=== PATIENT | male | born 1955 | race Caucasian/White ===

== ENCOUNTER 2020-01-03 09:41 | Outpatient (CLI) | payer MEDICARE, OTHER, SELFPAY ==
--- NOTE | 2020-01-03 09:49 | CT_ITS ---
WS: [id number] CTA THORACIC TECHNIQUE: Contrast enhanced CTA of the thoracic aorta with coronal and sagittal reformatted images a nd maximum intensity projection (MIP) images. CLINICAL INFORMATION: AORTIC ANEURYSM INTRATHORACIC COMPARISON: June 25, 2019 and October 26, 2018 DLP: 1508.[address] scans at [facility] use at least one of these dose optimization techniques: automat ed exposure control; mA and/or kV adjustment per patient size (includes targeted exams where dose is matched to clinical indication); or iterative reconstruction. FINDINGS: Descending thoracic aortic aneurysm measuring 4.9 cm in maximum dimension. This is unchanged since [place] 2018.Normal caliber aortic arch with narrowing of the descending thoracic aorta with modera te atheromatous disease. Associated peripheral mural thrombus is unchanged in appearance and may be r elated to chronic dissection with thrombosed false lumen. Mild cardiomegaly. Interval improvement in the right pleural effusion which has resolved. Residual pleural thickening ri ght lower lobe with a focal subpleural opacity measuring 1.8 x 1.5 CM. Slight surrounding spiculation . This is indeterminant and malignancy is not excluded. This can be further evaluated with PET/CT, sh ort interval 3 month follow-up chest CT, or CT-guided biopsy. No mediastinal or hilar lymphadenopathy. A few slightly prominent mediastinal lymph nodes likely reac tive. Coronary calcification. Normal gastroesophageal junction. Multiple low-attenuation lesions in t he liver some too small characterize likely hepatic cyst are unchanged. Normal adrenal glands. CT/CT angio chest [id number] IMPRESSION: 1. Stable ascending thoracic aorta aneurysm measuring 4.9 cm unchanged. 2. Stable mild narrowing of the descending thoracic aorta due with peripheral mural thrombus which may be due to prior dissection with occlusion of the false lumen. This is unchanged in appearance. 3. Interval resolution of right pleural effusion and pulmonary infiltrates. 4. Subpleural focal opacity right lower lobe measuring 1.8 x 1.5 cm may repres ent round atelectasis however malignancy is not excluded. This can be further e valuated with PET/CT, short interval 3 month follow-up, or CT-guided biopsy. 5. Mild cardiomegaly. 6. Numerous low-attenuation lesions in the liver some too small to characteriz e likely hepatic cysts and unchanged.
--- NOTE | 2020-01-03 09:50 | XR_ITS ---
WS: [id number] PROCEDURE: XR chest 2V* [id number] CLINICAL INFORMATION: PULMONARY EMBOLI COMPARISON: July 26, 2019 FINDINGS: Heart: Cardiomegaly. Lungs: Chronic emphysematous changes. Focal opacity or infiltrate in the right lower lobe measuring 2 .3 CM. Recommend further evaluation with chest CT. Bones: Normal visualized bony structures. XR/XR chest 2V* [id number] IMPRESSION: 1. Cardiomegaly. 2. Moderate chronic emphysematous changes. 3. Focal opacity or infiltrate in the right lower lobe measuring 2.3 cm. Recom mend further evaluation with chest CT.
[2020-01-03] MEDS: iodixanol 320 mg/mL 100mL Btl IV (10:17)
== END 2020-01-03 09:42 | disposition home or self-care (01) ==
LOC: RADWPI 09:48
PROVIDERS: Family Provider Nurse Practitioner Family; PCP Nurse Practitioner Family; Visit Provider Thoracic Surgery (Cardiothoracic Vascular Surgery)
DX: I71.2 Thoracic aortic aneurysm, without rupture (principal); I51.7 Cardiomegaly; J43.8 Other emphysema
CPT/HCPCS: 71046; 71275

== ENCOUNTER 2020-07-25 07:37 | Outpatient (CLI) | payer MEDICARE, OTHER, SELFPAY ==
--- NOTE | 2020-07-25 08:00 | CT_ITS ---
WS: [id number] CT scan of the chest with IV contrast, additional two-dimensional coronal and sagittal reconstruction was performed. 07/25/2020 Clinical Data: 6 MONTH F/U CT Comparison: CT chest, 01/03/2020. DLP: 1322.[address] scans at [facility] use at least one of these dose optimization techniques: automat ed exposure control; mA and/or kV adjustment per patient size (includes targeted exams where dose is matched to clinical indication); or iterative reconstruction. Findings: The right lower lobe pleural-based nodule still measures 1.5 x 1.8 cm. It is seen best on image 46 of 66. No other nodules are seen. There are no masses or effusions. No pneumonia or pneumothorax is see n. The heart size is slightly enlarged with no pericardial effusion. The ascending aorta is dilated t o 5.0 cm unchanged. The descending thoracic aorta demonstrates no aneurysm but there is a mural throm bus unchanged. The pulmonary artery is unremarkable. There is minimal mediastinal adenopathy but no e nlarged nodes. No axillary adenopathy is present. The upper abdomen shows low density lesions in the liver which are probably cysts and unchanged. The remainder of the upper abdomen is unremarkable. The bones of the thorax show only osteoarthritic ordaz ges of the thoracic vertebral bodies with no metastatic disease. CT/CT chest w con* [id number] Impression: 1. Right lower lobe base nodule unchanged which probably represents fibrosis ra ther than a malignant process. 2. Dilatation of the ascending thoracic aorta with mural thrombus in the descen ding thoracic aorta unchanged.
[2020-07-25 08:25] LABS: Blood Urea Nitrogen 22 mg/dL (8-23); Glomerular Filtration Rate 40.7 mL/min (90-130)
[2020-07-25] MEDS: iodixanol 320 mg/mL 100mL Btl IV (08:47)
== END 2020-07-25 07:38 | disposition home or self-care (01) ==
LOC: RADWPI 07:41
PROVIDERS: PCP Nurse Practitioner Family; Visit Provider Thoracic Surgery (Cardiothoracic Vascular Surgery)
DX: R91.1 Solitary pulmonary nodule (principal)
CPT/HCPCS: 71260; 82565; 84520; Q9967

== ENCOUNTER 2020-08-18 11:08 | Outpatient (CLI) | payer MEDICARE, OTHER, SELFPAY ==
--- NOTE | 2020-08-18 11:48 | ECG_ITS ---
[facility] Test Date: 2020-08-18 Pat Name: Joshua Lazo Department: Room: Gender: Male Superintendent Production: : 1955 Requested By: Dora Villarreal Order Number: [id number] MD: Francisco J Lewis M.D. Measurements Intervals [place] Rate: 70 P: KS: -1 QRS: -37 QRSD: 96 T: 41 QT: 362 QTc: 392 Interpretive Statements ATRIAL FIBRILLATION MARKED LEFT AXIS DEVIATION [QRS AXIS < -30] Compared to ECG 06/25/2019 17:24:35 Left-axis deviation now present Myocardial infarct finding no longer present Electronically Signed On 08-18-2020 18:34:59 WAREHOUSING TECHNICIAN by Francisco J Lewis M.D. [id number]
== END 2020-08-18 11:09 | disposition home or self-care (01) ==
LOC: RT 11:09
PROVIDERS: PCP Nurse Practitioner Family; Visit Provider Nurse Practitioner Family
DX: I48.91 Unspecified atrial fibrillation (principal)
CPT/HCPCS: 93005

== ENCOUNTER 2021-01-26 07:52 | Outpatient (CLI) | payer MEDICARE, OTHER, SELFPAY ==
--- NOTE | 2021-01-26 08:00 | CT_ITS ---
WS: [id number] Exam: CT chest w con* [id number] Date/Time of Exam: 01/26/2021 8:03 AM Reason For Exam: lung nodule DLP: 1072.[address] scans at [facility] use at least one of these dose optimization techniques: automat ed exposure control; mA and/or kV adjustment per patient size (includes targeted exams where dose is matched to clinical indication); or iterative reconstruction. 100 mL of nonionic radiographic contras t administered intravenously. Comparison 07/25/2020. Stable appearing 1.6 cm pleural-based nodule is seen in the right lower lobe. No other discrete nodul es are identified. There are chronic interstitial changes noted in both lungs. The lungs are fully ex panded. There are no infiltrates or pleural effusions. The airway is patent. No hilar or mediastinal lymphadenopathy. Stable appearing dilatation of the descending thoracic aorta with mural thrombus not ed. There is also stable dilatation of the ascending thoracic aorta measuring about 4.8 cm at greates t diameter. Coronary artery calcifications. No pericardial effusion. Normal thyroid tissue. Mild nodu larity the left adrenal gland is unchanged. Several small low attenuation densities in the liver most likely cysts. These are stable. No destructive bone lesions or significant chest wall defects. CT/CT chest w con* [id number] IMPRESSION: 1. Stable 1.6 cm pleural-based nodule in the right lower lobe. 2. No lymphadenopathy in the chest, additional stable appearing nonacute findin gs as detailed above.
[2021-01-26 08:42] LABS: Blood Urea Nitrogen 22 mg/dL (8-23); Glomerular Filtration Rate 35.6 mL/min (90-130)
[2021-01-26] MEDS: iodixanol 320 mg/mL 100mL Btl IV (08:49)
== END 2021-01-26 07:53 | disposition home or self-care (01) ==
PROVIDERS: PCP Nurse Practitioner Family; Visit Provider Thoracic Surgery (Cardiothoracic Vascular Surgery)
DX: R91.1 Solitary pulmonary nodule (principal)
CPT/HCPCS: 71260; 82565; 84520; Q9967

== ENCOUNTER → 2021-11-23 09:05 | Outpatient (BNVA) | payer MEDICARE, OTHER, SELFPAY | PROVIDERS: PCP Nurse Practitioner Family; Visit Provider Specialist | DX: G44.209 Tension-type headache, unspecified, not intractable (principal) | CPT/HCPCS: 99203; 99204 ==

== ENCOUNTER → 2022-01-25 11:42 | Outpatient (BNVA) | payer MEDICARE, OTHER, SELFPAY | PROVIDERS: PCP Nurse Practitioner Family; Visit Provider Specialist | DX: G44.209 Tension-type headache, unspecified, not intractable (principal); F17.290 Nicotine dependence, other tobacco product, uncomplicated | CPT/HCPCS: 99212; 99213 ==

== ENCOUNTER 2022-02-26 13:19 | Outpatient (CLI) | payer MEDICARE, OTHER, SELFPAY ==
--- NOTE | 2022-02-26 13:00 | CT_ITS ---
WS: [id number] Exam: CT chest w con* [id number] Date/Time of Exam: 02/26/2022 1:30 PM Reason For Exam: R91.1 - Solitary pulmonary nodule DLP: 818.[address] scans at [facility] use at least one of these dose optimization techniques: automated e xposure control; mA and/or kV adjustment per patient size (includes targeted exams where dose is matc hed to clinical indication); or iterative reconstruction. Comparison made to prior study 01/26/2021. Stable appearing 1.6 cm pleural-based nodule in the posterior aspect of the right lower lobe. No new nodules have developed. The lungs are fully expanded. Mild plaque atelectasis in the lingula. The air way is patent. The thoracic aorta is normal in caliber. Subcentimeter mediastinal lymph nodes identif ied which are stable. The central pulmonary arteries are clear. Coronary artery calcifications. Stabl e appearing mural thrombus in the thoracic aorta. Normal thyroid tissue. No pleural or pericardial ef fusion. The chest wall is unremarkable. No destructive bone lesions. Stable appearing dilatation of t he ascending aorta measuring about 4.8 cm at greatest diameter. Several small liver cysts which are s table. Mild nodularity the left adrenal gland unchanged. Moderate atrophy of the right kidney noted u nchanged in appearance. CT/CT chest w con* [id number] IMPRESSION: 1. Stable appearing 1.6 cm pleural-based nodule in the posterior aspect of the right lower lobe. No new nodules or masses have developed. 2. Stable appearing dilatation of the ascending aorta measuring about 4.8 cm at greatest diameter. Mural thrombus in the thoracic aorta unchanged. 3. Subcentimeter mediastinal lymph nodes stable in appearance. Other minor find ings as detailed above.
[2022-02-26 14:11] LABS: Blood Urea Nitrogen 18 mg/dL (8-23); Glomerular Filtration Rate 35.5 mL/min (90-130)
[2022-02-26] MEDS: iodixanol 320 mg/mL 100mL Btl IV (14:14)
== END 2022-02-26 13:20 | disposition home or self-care (01) ==
LOC: RAD 13:21
PROVIDERS: PCP Nurse Practitioner Family; Visit Provider Thoracic Surgery (Cardiothoracic Vascular Surgery)
DX: R91.1 Solitary pulmonary nodule (principal)
CPT/HCPCS: 71260; 82565; 84520

== ENCOUNTER → 2023-01-25 12:47 | Outpatient (BNVA) | payer MEDICARE, OTHER, SELFPAY | PROVIDERS: PCP Nurse Practitioner Family; Visit Provider Specialist | DX: G47.00 Insomnia, unspecified (principal); F15.99 Other stimulant use, unspecified with unspecified stimulant-induced disorder | CPT/HCPCS: 99214 ==

== ENCOUNTER 2023-03-31 09:06 | Outpatient (CLI) | payer MEDICARE, OTHER, SELFPAY ==
--- NOTE | 2023-03-31 09:20 | USCV_ITS ---
Joshua Lazo Age: 67 Gender: M : 1955 Exam Date: 03/31/2023 09:46 Ordering Phys: Ángela Carlson Technologist: SHOBHA [place] [facility] [place]: AAA SCREENING HISTORY: Diameter (cm) AP x Transverse x Length Velocity (cm/s) Waveform Prox Aorta: 2.80 x 2.83 x 48.80 Triphasic Mid Aorta: 2.11 x 2.37 x 71.90 Triphasic Distal Aorta: 2.22 x 2.18 x 73.50 Triphasic Right Iliac Prox: 0.96 x 0.81 x 79.30 Triphasic Left Iliac Prox: 1.09 x 1.11 x 75.20 Triphasic Stent Prox Landing x x Aneurysmal Sac Max x x Lt Lat Sac Dim Rt Lat Sac Dim Stent Dist Landing x x Right Iliac Stent x x Left Iliac Stent x x Right Renal Art Left Renal Art FINDINGS: Comparison: none available. No evidence of abdominal aortic or bilateral iliac aneurysm. Ectatic abdominal aorta with evidence of atherosclerotic plaque noted. CONCLUSIONS No evidence of abdominal aortic or bilateral iliac aneurysm. Dr. Joanie Patel DO (Electronically Signed) Final Date: 31 March 2023 12:02 S
== END 2023-03-31 09:07 | disposition home or self-care (01) ==
LOC: RAD 09:08
PROVIDERS: PCP Nurse Practitioner Family; Visit Provider Nurse Practitioner Family
DX: Z13.6 Encounter for screening for cardiovascular disorders (principal)
CPT/HCPCS: 76706

== ENCOUNTER 2023-04-03 07:51 | Emergency (ER) | payer MEDICARE, OTHER, SELFPAY ==
--- NOTE | 2023-04-03 07:53 | USR_ITS ---
PROCEDURE INFORMATION: Exam: US Scrotum Exam date and time: 04/03/2023 8:50 AM Age: 67 years old Clinical indication: Condition or disease; Mass, lump, or swelling; Left TECHNIQUE: Imaging protocol: Real-time ultrasound of the scrotum and contents with color Doppler and image documentation. COMPARISON: US renal BI* [id number] 08/14/2018 9:35 AM FINDINGS: Right testicle: Normal. No mass. No torsion. Mildly diminished flow vascular flow. Left testicle: Normal. No mass. No torsion. Normal vascular flow. Epididymides: Normal. Scrotum/soft tissues: There is thickening and edema of the scrotal wall especially on the left side. Fairly well-defined complex hypoechoic collection is present in the left scrotal wall measuring about 1.6 cm diameter which may represent an abscess. Small hydroceles larger on the right side.. US/US scrotum [id number] IMPRESSION: There is left scrotal swelling with a 1.6 cm hypoechoic complex left subcutaneous mass consistent with an abscess.
[2023-04-03 07:55] VITALS: BP 120/84; PULSE 75; RESP 14; TEMP 36.8; O2SAT 92
--- NOTE | 2023-04-03 08:07 | W.ED.MALEGU ---
HPI - Male Genitourinary General: Chief complaint: Urogenital-Male Stated complaint: mass in left testicle Time Seen by Provider: 04/03/23 07:53 Source: patient Mode of arrival: ambulatory Limitations: no limitations History of Present Illness: 67-year-old male states that he has noticed area on his left testicle he feels a lump or mass like states he scratched the area felt like a pimple does have some pain he rates a 5 out of 10 no fever no drainage denies any worsening improving factors. Associated symptoms: Deny dysuria, nausea or vomiting Review of Systems Const: Denies: fever(s), chills, body aches or change in appetite Eyes: Denies: eye discomfort ENMT: Denies: throat pain or dental pain Card: Denies: chest pain Resp: Denies: dyspnea GI: Denies: abdominal pain, nausea, vomiting or diarrhea : Reports: testicular mass; Denies: dysuria Musc: Denies: neck pain or back pain Skin/Breast: Denies: rash Neuro: Denies: headache(s) PFS ED PFSH: Medical History (Updated 04/03/23 @ 09:34 by Scot Espinoza MD) Right lower lobe pulmonary nodule Social History Smoking and tobacco status: never smoked Quit status (tobacco): has quit using tobacco Year quit tobacco: 2019 Alcohol intake: current Alcohol intake frequency: few times a month Substance/Drug Use: never Marital status: Single Physical Exam Const: COMMON NORMALS: no acute distress HENMT: COMMON NORMALS: normocephalic and atraumatic HEAD & SCALP: normocephalic and atraumatic Eye: COMMON NORMALS: conjunctivae normal CONJUNCTIVA: Yes conjunctivae normal Neck/C-Spine: COMMON NORMALS: supple Chest: COMMONS NORMALS: normal inspection of the chest Resp: COMMON NORMALS: normal respiratory effort Cardio: COMMON NORMALS: regular rate RATE: regular rate GI: INSPECTION: Yes normal to inspection : OTHER: No testicle tenderness no signs of torsion does have a small mass on the left scrotum Procedures Abscess I/D Site: scrotum Side (if applicable): left Local Anesthetic: lidocaine 1% Amount of anesthesia used (mL): 3 Technique: incised with #11 blade Irrigation: No Packing used?: none Course Vital Signs: Vital signs: Vital Signs Temperature 98.2 F 04/03/23 07:55 Pulse Rate 75 04/03/23 07:55 Respiratory Rate 14 04/03/23 07:55 Blood Pressure 120/84 04/03/23 07:55 Pulse Oximetry 92 04/03/23 07:55 Oxygen Delivery Me thod Room Air 04/03/23 07:55 MDM - Male Medical Decision Making Patient presents here with a left scrotal abscess I did incise and drain it we will place him on Bactrim he has no signs of Nicole's. He is stable for discharge follow-up with PCP and return if worsening. Lab Data Radiology Impressions Scrotum Ultrasound 04/03/23 07:53 IMPRESSION: There is left scrotal swelling with a 1.6 cm hypoechoic complex left subcutaneous mass consistent with an abscess. Discharge Plan Discharge Patient Disposition: Home Clinical Impression: Abscess Condition: Stable Prescriptions: New Bactrim DS 800-160 mg tablet 1 tab PO BID 10 Days Qty: 20 0RF No Action amlodipine 5 mg tablet 5 mg PO BID olmesartan 20 mg tablet 20 mg PO BEDTIME atorvastatin 40 mg tablet 40 mg PO DAILY Vitamin D3 25 mcg (1,000 unit) Tablet 25 mcg PO DAILY Eliquis 2.5 mg tablet 2.5 mg PO BID [place] 3-6-9 1,200 mg Capsule 1 cap PO DAILY metoprolol tartrate 75 mg tablet 75 mg PO BID amitriptyline 25 mg tablet 25 mg PO BEDTIME Ambien 10 mg tablet 10 mg PO BEDTIME Discharge Orders: Discharge ED (Routine); Ordered 04/03/23 Ordered By: Scot Espinoza Referrals: Ángela Carlson FNP [Primary Care Provider] - 1-3 days Discharge Diet: Advance as tolerated Discharge Activity: Resume usual activity Patient Instructions: Abscess (ED) Coding Level of Care Code ED Supervisor [employer] for Mitch Hannon
== END 2023-04-03 09:50 | disposition home or self-care (01) ==
PROVIDERS: Emergency Provider Emergency Medicine; PCP Nurse Practitioner Family
DX: N49.2 Inflammatory disorders of scrotum (principal); Z87.891 Personal history of nicotine dependence
CPT/HCPCS: 55100; 76870; 99283

== ENCOUNTER 2024-02-27 19:38 | Emergency (ER) | payer MEDICARE, OTHER, SELFPAY ==
[2024-02-27 19:48] VITALS: BP 156/101; PULSE 84; RESP 20; TEMP 36.4; O2SAT 99; BMI 31.4
[2024-02-27 20:12] LABS: Basophils % 0.2 %; Eosinophils # 0.2 10^3/uL (0.0-0.8); Eosinophils % 2.3 %; Hematocrit 52.3 % (37-53); Lymphocytes # 1.4 10^3/uL (0.8-4.8); Lymphocytes % 14.9 %; Mean Corpuscular HGB Conc 33.3 g/dL (30-55); Mean Corpuscular Hemoglobin 30.2 pg (27-33); Mean Corpuscular Volume 90.8 fl (82-101); Mean Platelet Volume 9.5 fL (7.4-10.4); Monocytes # 0.5 10^3/uL (0.2-0.9); Monocytes % 5.2 %; Neutrophils # 7.32 10^3/uL (1.8-7.7); Neutrophils % 77.1 %; Nucleated Red Blood Cells % 0 %; Platelet Count 167 10^3/cmm (157-399); Red Blood Count 5.76 10^6/uL (3.85-5.65); Red Cell Distribution Width 13.5 % (12.1-15.1); White Blood Count 9.49 10^3/uL (3.29-11.43)
--- NOTE | 2024-02-27 20:23 | CTR_ITS ---
PROCEDURE INFORMATION: Exam: CT Abdomen And Pelvis Without Contrast Exam date and time: 02/27/2024 8:38 PM Age: 68 years old Clinical indication: Abdominal tenderness; Additional info: L flank pain, tender llq as well, TECHNIQUE: Imaging protocol: Computed tomography of the abdomen and pelvis without contrast. Radiation optimization: All CT scans at this facility use at least one of these dose optimization techniques: automated exposure control; mA and/or kV adjustment per patient size (includes targeted exams where dose is matched to clinical indication); or iterative reconstruction. COMPARISON: US scrotum [id number] 04/03/2023 8:50 AM RADIATION DOSE METRICS: Total DLP (mGy-cm): 882.9 FINDINGS: Liver: Normal. No mass. Gallbladder and bile ducts: Normal. No calcified stones. No ductal dilation. Pancreas: Normal. No ductal dilation. Spleen: Normal. No splenomegaly. Adrenal glands: Normal. No mass. Kidneys and ureters: Moderate atrophy of the upper pole right kidney. Mildly dilated left renal collecting system with no obvious ureteral stone or bladder stone suggesting the patient may have recently passed a kidney stone. Stomach and bowel: Unremarkable. No obstruction. No mucosal thickening. Appendix: No evidence of appendicitis. Intraperitoneal space: Unremarkable. No free air. No significant fluid collection. Vasculature: Calcification of the abdominal aorta and/or iliac arteries consistent with atherosclerotic vessel disease. Lymph nodes: Unremarkable. No enlarged lymph nodes. Urinary bladder: See Kidneys and ureters finding. Reproductive: Bilateral vas deferens calcifications which can be related to diabetes, advanced age, mechanical obstruction of the vas deferens, tuberculosis, chronic infections or hyperparathyroidism. Bones/joints: Mild to moderate multilevel spine degenerative changes including degenerative disc disease, spondylosis and facet degenerative changes. Soft tissues: Unremarkable. CT/CT abdomen pelvis wo con [id number] IMPRESSION: 1. Moderate atrophy of the upper pole right kidney. 2. Mildly dilated left renal collecting system with no obvious ureteral stone or bladder stone suggesting the patient may have recently passed a kidney stone.
--- NOTE | 2024-02-27 20:25 | ED_ITS ---
HPI - Abdominal Pain 2 General: Chief Complaint: Abdominal Pain Stated Complaint: ABD Pain\Low Time Seen by Provider: 02/27/24 19:42 Source: patient Mode of arrival: ambulatory Limitations: no limitations History of Present Illness: Patient reports he was sitting in his chair when suddenly he had pain going down the left side his abdomen radiating to left side of his scrotum. Reports it feels like someone kicked him in the balls but he was just sitting there. Pain is still present moderate to severe. No known fever. Review of Systems 2 General: Reports: 10 or more systems reviewed and unremarkable except in HPI and below PFSH ED 2 PFSH: Medical History (Updated 02/27/24 @ 21:33 by Ben Baig MD) Right lower lobe pulmonary nodule Social History Smoking and tobacco/nicotine status: never used tobacco/nicotine Quit status (tobacco/nicotine): has quit using Year quit tobacco: 2019 Alcohol intake: current Alcohol intake frequency: few times a month Substance/Drug Use: never Marital status: Single Physical Exam 2 Const: COMMON NORMALS: no acute distress, average body habitus, patient oriented x3, healthy appearing, alert and well nourished GENERAL APPEARANCE: well kempt and well developed HENMT: COMMON NORMALS: normocephalic, atraumatic, external ears normal and moist oral mucous membranes HEAD & SCALP: normocephalic and atraumatic E XTERNAL EAR: Yes external ears normal Eye: COMMON NORMALS: Equal, round and reactive pupils present, EOMs intact bilaterally and conjunctivae normal CONJUNCTIVA: Yes conjunctivae normal P UPIL: Yes Equal, round and reactive pupils present Neck/C-Spine: COMMON NORMALS: full ROM, no lymphadenopathy and supple Chest: CHEST: Yes Symmetrical chest wall rise and No Surgical scars present (Chest) Resp: COMMON NORMALS: normal respiratory effort, No retractions, No use of accessory muscles and clear to auscultation bilaterally AUSCULTATION: clear to auscultation bilaterally Cardio: COMMON NORMALS: regular rate, regular rhythm, S1 normal heart sound present, S2 normal heart sound present, No gallops present (Cardio), No clicks present (Cardio), No murmurs present (Cardio) and No rub (Cardio) RATE: r egular rate RHYTHM: regular rhythm HEART SOUNDS: S1 normal heart sound present, S2 normal heart sound present and no murmurs PERIPHERAL PULSES: o ther (Radial pulses 2+ and symmetric) GI: COMMON NORMALS: Soft to palpation and no masses INSPECTION: Yes normal to inspection and No abdominal distension PALPATION: Yes Soft to palpation, Yes Tenderness to palpation present (GI) Details: LLQ (and to the L flank), No Guarding due to palpation present (GI) and No Rebound tenderness present O THER: not tender over inguinal area : COMMON NORMALS: Yes no CVA tenderness BLADDER/KIDNEY EXAM: Yes no CVA tenderness Back/Pelvis: COMMON NORMALS: no CVA tenderness Extremity: COMMON NORMALS: normal to inspection, full ROM, capillary refill normal and no clubbing, cyanosis or edema Neuro: COMMON NORMALS: patient oriented x3 SENSORIUM/ORIENTATION: Yes alert Psych: APPEARANCE: Yes well kempt Skin: COMMON NORMALS: no rashes or lesions noted, no wounds, turgor normal and no jaundice GENERAL SKIN EXAM: no rashes or lesions noted and turgor normal Course 2 Vital Signs: Vital signs: Vital Signs Temperature 97.5 F L 02/27/24 19:48 Pulse Rate 88 02/27/24 21:05 Respiratory Rate 20 H 02/27/24 19:48 Blood Pressure 135/95 02/27/24 21:05 Pulse Oximetry 98 02/27/24 21:05 Oxygen Delivery Me thod Room Air 02/27/24 21:05 MDM - Abdominal Pain Medical Decision Making Patient found to have kidney stone, given 15 Toradol here in the ER. Reports improvement in pain. Patient will be discharged with Toradol prescription CT suggest that it has already been passed and therefore patient should not require medication for too long. Discussed to return if pain continues. Differential Diagnosis Likely abdominal pain, calculus of kidney, constipation, diverticulitis and gastroenteritis Medical Records I reviewed the patient's medical records. Lab Data I reviewed the patient's lab results. 02/27/24 20:07 02/27/24 20:07 Labs/Radiology: Radiology Impressions Abdomen/Pelvis CT 02/27/24 20:23 IMPRESSION: 1. Moderate atrophy of the upper pole right kidney. 2. Mildly dilated left renal collecting system with no obvious ureteral stone or bladder stone suggesting the patient may have recently passed a kidney stone. Laboratory Results WBC 9.49 10^3/uL (3.29-11.43) 02/27/24 20:07 RBC 5.76 10^6/uL (3.85-5.65) H 02/27/24 20:07 Hgb 17.40 g/dL (11.27-16.99) H 02/27/24 20:07 Hct 52.3 % (37-53) 02/27/24 20:07 MCV 90.8 fl (82-101) 02/27/24 20:07 MCH 30.2 pg (27-33) 02/27/24 20:07 MCHC 33.3 g/dL (30-55) 02/27/24 20:07 RDW 13.5 % (12.1-15.1) 02/27/24 20:07 Plt Count 167 10^3/cmm (157-399) 02/27/24 20:07 MPV 9.5 fL (7.4-10.4) 02/27/24 20:07 Neut % (Auto) 77.1 % 02/27/24 20:07 Lymph % (Auto) 14.9 % 02/27/24 20:07 [place] % (Auto) 5.2 % 02/27/24 20:07 Eos % (Auto) 2.3 % 02/27/24 20:07 Baso % (Auto) 0.2 % 02/27/24 20:07 Neut # (Auto) 7.32 10^3/uL (1.8-7.7) 02/27/24 20:07 Lymph # (Auto) 1.4 10^3/uL (0.8-4.8) 02/27/24 20:07 [place] # (Auto) 0.5 10^3/uL (0.2-0.9) 02/27/24 20:07 Eos # (Auto) 0.2 10^3/uL (0.0-0.8) 02/27/24 20:07 Baso # (Auto) 0.0 10^3/uL (0.0-0.1) 02/27/24 20:07 Nucleated RBC % (auto) 0 % 02/27/24 20:07 Nucleated RBCs # 0.0 /100WBC 02/27/24 20:07 Sodium 138 mmol/L (136-145) 02/27/24 20:07 Potassium 4.3 mmol/L (3.5-5.1) 02/27/24 20:07 Chloride 106 mmol/L (98-107) 02/27/24 20:07 Carbon Dioxide 22 mmol/L (22-29) 02/27/24 20:07 Anion Gap 14.3 (5-19) 02/27/24 20:07 BUN 22 mg/dL (8-23) 02/27/24 20:07 Creatinine 1.9 mg/dL (0.7-1.2) H 02/27/24 20:07 GFR Calculation 35.3 mL/min (90-130) L 02/27/24 20:07 Glucose 120 mg/dL (65-115) H 02/27/24 20:07 Calculated Osmolality 291 mOsm/kg (285-295) 02/27/24 20:07 Calcium 8.6 mg/dL (8.5-10.5) 02/27/24 20:07 Total Bilirubin 0.6 mg/dL (0.15-1.2) 02/27/24 20:07 AST 11 U/L (0-40) 02/27/24 20:07 ALT 11 U/L (0-41) 02/27/24 20:07 Alkaline Phosphatase 103 U/L (40-130) 02/27/24 20:07 Total Protein 7.5 g/dL (6.6-8.7) 02/27/24 20:07 Albumin 4.4 g/dL (3.5-5.2) 02/27/24 20:07 Globulin 3.1 g/dL (1.3-4.6) 02/27/24 20:07 Urine Color Yellow (Yellow) 02/27/24 19:43 Urine Appearance Clear (CLEAR) 02/27/24 19:43 Urine pH 5 (5-7) 02/27/24 19:43 Ur Specific [place] 1.020 (1.005-1.030) 02/27/24 19:43 Urine Protein 1+ (Negative) H 02/27/24 19:43 Urine Glucose (UA) Norm (Normal) 02/27/24 19:43 Urine Ketones 1+ (Negative) H 02/27/24 19:43 Urine Blood 2+ (Negative) H 02/27/24 19:43 Urine Nitrate Negative (Negative) 02/27/24 19:43 Urine Bilirubin Neg (Negative) 02/27/24 19:43 Urine Urobilinogen Neg mg/dL (Negative) 02/27/24 19:43 Ur Leukocyte Esterase Negative (Negative) 02/27/24 19:43 Urine RBC 0-4 /hpf (0-2) H 02/27/24 19:43 Urine WBC 5-10 /hpf (0-5) H 02/27/24 19:43 Ur Squamous Epith Cells 0-4 /hpf (0-5) H 02/27/24 19:43 Amorphous Sediment Not Reportable 02/27/24 19:43 Urine Bacteria Trace /hpf (NONE) 02/27/24 19:43 Urine Mucus Trace /hpf 02/27/24 19:43 Urine Sperm 1+ /hpf 02/27/24 19:43 All radiology interpretation(s) finalized by discharge ED provider radiology interpretation(s): CT abd/pelv: Patient has prominent collecting system on the left but no seen nephrolithiasis no stranding. No obvious acute changes. Discharge Plan Discharge Patient Disposition: Home Clinical Impression: Kidney stone on left side Condition: Stable Prescriptions: New ketorolac 10 mg tablet 10 mg PO Q6H PRN (Reason: pain) 3 Days Qty: 12 0RF No Action Ambien 10 mg tablet 10 mg PO BEDTIME Qty: 30 3RF amlodipine 5 mg tablet 5 mg PO BID olmesartan 20 mg tablet 20 mg PO BEDTIME atorvastatin 40 mg tablet 40 mg PO DAILY Vitamin D3 25 mcg (1,000 unit) Tablet 25 mcg PO DAILY Eliquis 2.5 mg tablet 2.5 mg PO BID [place] 3-6-9 1,200 mg Capsule 1 cap PO DAILY metoprolol tartrate 75 mg tablet 75 mg PO BID amitriptyline 25 mg tablet 25 mg PO BEDTIME Discharge Orders: Discharge ED (Routine); Ordered 02/27/24 Ordered By: Ben Baig Referrals: Ángela Carlson FNP [Primary Care Provider] - Discharge Diet: Usual diet Discharge Activity: Resume usual activity Patient Instructions: Kidney Stones (ED) Coding Level of Care Code ED Photo Tech for Mitch Hannon
[2024-02-27] MEDS: ketorolac 30 mg/mL INJ 15 MG IVP (20:32)
[2024-02-27 20:33] LABS: Bilirubin Urine Neg (Negative); Blood Urine 2+ (Negative); Glucose Urine UA Norm (Normal); Ketones Urine 1+ (Negative); Leukocyte Esterase Urine Negative (Negative); Nitrate Urine Negative (Negative); Protein Urine 1+ (Negative); Urine Appearance Clear (CLEAR); Urine Color Yellow (Yellow); Urobilinogen Urine Neg (Negative); pH Urine 5 (5-7)
[2024-02-27 20:34] LABS: Add Urine Microscopic? YES; Bacteria Urine TRACE /hpf; Mucus Urine TRACE /hpf; RBC Urine 0-4 /hpf (0-2); Sperm Urine 1+ /hpf; Squamous Epithelial Cell Urine 0-4 /hpf (0-5)
[2024-02-27 20:36] LABS: Alanine Aminotransferase 11 U/L (0-41); Albumin Level 4.4 g/dL (3.5-5.2); Alkaline Phosphatase 103 U/L (40-130); Anion Gap 14.3 (5-19); Aspartate Amino Transferase 11 U/L (0-40); Blood Urea Nitrogen 22 mg/dL (8-23); Calcium 8.6 mg/dL (8.5-10.5); Carbon Dioxide 22 mmol/L (22-29); Chloride 106 mmol/L (98-107); Creatinine Clr Calc Pharmacy 42.0737; Globulin 3.1 g/dL (1.3-4.6); Glomerular Filtration Rate 35.3 mL/min (90-130); Glucose 120 mg/dL (65-115); Osmolality Calculated 291 mOsm/kg (285-295); Potassium 4.3 mmol/L (3.5-5.1); Sodium 138 mmol/L (136-145); Total Bilirubin 0.6 mg/dL (0.15-1.2); Total Protein 7.5 g/dL (6.6-8.7)
[2024-02-27 21:05] VITALS: BP 135/95; PULSE 88; O2SAT 98
[2024-02-27 21:42] VITALS: BP 135/70; PULSE 83; RESP 16; O2SAT 97
== END 2024-02-27 21:44 | disposition home or self-care (01) ==
PROVIDERS: Emergency Provider Emergency Medicine; PCP Nurse Practitioner Family
DX: N20.0 Calculus of kidney (principal); Z87.891 Personal history of nicotine dependence
CPT/HCPCS: 74176; 80053; 81001; 85025; 96374; 99285; J1885

== ENCOUNTER → 2024-06-12 08:27 | Outpatient (BNVA) | payer MEDICARE, OTHER, SELFPAY | PROVIDERS: PCP Nurse Practitioner Family; Referring Provider Nurse Practitioner Family; Visit Provider Specialist | DX: F51.01 Primary insomnia (principal); G43.711 Chronic migraine without aura, intractable, with status migrainosus; R91.1 Solitary pulmonary nodule | CPT/HCPCS: 99214 ==